=== PATIENT | female | born 1985 | race Caucasian/White ===

== ENCOUNTER 2019-04-28 10:53 | Day surgery (SDC) | payer BC ==
[2019-04-28 11:29] VITALS: BMI 36.6
[2019-04-28] MEDS ORDERED: hydrALAZINE 20 MG/ML VIAL SLOW IVP PRN ×2 (12:25)
[2019-04-28] MEDS ORDERED: Ondansetron PF 4 MG/2 ML Vial IVP PRN (12:25)
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
--- NOTE | 2019-04-28 16:16 | ULT ---
LIMITED OB ULTRASOUND: 04/28/19 HISTORY: Evaluation for abruption. A single viable intrauterine is seen which is in a breech presentation. The heart rat e is 131 beats per minute. Amniotic fluid index is 9.9. The placenta is posterior in location. I do n ot see any signs of abruption. No evidence of previa. IMPRESSION: Placenta which is posterior and more fundal in location. No signs of abruption. POS: [facility]
== END 2019-04-28 14:47 | disposition home health service (06) ==
LOC: L&D/OP 10:53
PROVIDERS: ATTEND Obstetrics & Gynecology
DX: O47.03 False labor before 37 completed weeks of gestation, third trimester (principal); O32.1XX0 Maternal care for breech presentation, not applicable or unspecified; Z3A.35 35 weeks gestation of pregnancy; V89.2XXA Person injured in unspecified motor-vehicle accident, traffic, initial encounter; Y92.411 Interstate highway as the place of occurrence of the external cause
CPT/HCPCS: 36415; 76815; 86850; 86900; 86901; 99283

== ENCOUNTER 2019-05-31 05:30 | Inpatient (IN) | payer BC ==
[2019-05-31] MEDS ORDERED: HYDROcodone/Acetaminophen 5/325 mg Tablet PO PRN (07:01)
[2019-05-31] MEDS ORDERED: Ondansetron PF 4 MG/2 ML Vial IVP PRN ×2 (07:01→09:52)
[2019-05-31] MEDS ORDERED: Lidocaine 1% (PF) 30 ML VIAL SC PRN (07:01)
[2019-05-31] MEDS ORDERED: Promethazine HCl 25 MG/ML VIAL IM PRN ×2 (07:01→09:52)
[2019-05-31] MEDS ORDERED: Ibuprofen 800 MG TAB PO PRN (07:01)
[2019-05-31] MEDS ORDERED: hydrALAZINE 20 MG/ML VIAL SLOW IVP PRN ×2 (07:01→12:54)
[2019-05-31] MEDS ORDERED: Misoprostol 200 MCG TAB PR PRN (07:01)
[2019-05-31] MEDS ORDERED: NS / Oxytocin 40 units/1000ml 1,000 ML IV PRN (07:01)
[2019-05-31] MEDS ORDERED: NS w/ Oxytocin 10 units 500 ML IV SCH (07:01)
[2019-05-31 07:26] VITALS: BMI 36.6
[2019-05-31 08:17] LABS: Hemoglobin 11.2 g/dL (12.0-16.0); Mean Corpuscular HGB CONC 34.7 g/dL (32.0-36.0); Mean Corpuscular Hemoglobin 26.4 pg (27.0-31.0); Mean Corpuscular Volume 76.1 fL (78.0-98.0); Mean Platelet Volume 10.7 fL (7.4-10.4); Platelet Count 160 thou/uL (130-400); RBC Distribution Width 13.5 % (11.5-14.5); Red Blood Cell (RBC) Count 4.23 mill/uL (4.20-5.40); White Blood Cell (WBC) Count 7.4 thou/uL (4.8-10.8)
[2019-05-31 08:50] LABS: HBSAg Index 0.33 S/CO (0-0.99); Hep B Surf Ag Non-Reactive S/CO (NonReactive); Syphilis Antibody Nonreactive (Nonreactive); Syphilis Antibody Index 0.02 S/CO (<1.00 Non-Reactive)
[2019-05-31] MEDS ORDERED: Fentanyl 4 mcg/Bup 0.1% Cadd 100 ML ONE (09:06)
[2019-05-31] MEDS ORDERED: Lactated Ringer's 500 ML IV PRN (09:52)
[2019-05-31] MEDS ORDERED: Naloxone HCl 0.4 mg/ml Vial IVP PRN ×2 (09:52)
[2019-05-31] MEDS ORDERED: diphenhydrAMINE 50 MG/ML VIAL IVP PRN (09:52)
[2019-05-31] MEDS ORDERED: Acetaminophen 325 MG TAB PO PRN (09:52)
[2019-05-31] MEDS ORDERED: ePHEDrine/0.9% NaCl/PF SYRINGE 50 mg/10 ml SLOW IVP PRN (09:52)
[2019-05-31] MEDS ORDERED: Fentanyl 4 mcg/Bupivacaine 0.1% Cassette 100 ML EPIDURAL SCH (10:00)
[2019-05-31] MEDS ORDERED: Communication Order-Pharmacy FS SCH (10:00)
[2019-05-31] MEDS ORDERED: Bupivacaine 0.25% HCL 30 ML VIAL ONE (11:11)
--- NOTE | 2019-05-31 12:51 | PDOC.OPDEL ---
OB Operative/Delivery Note Delivery Dr/Surgeon: More Pre-Delivery Diagnosis: elective induction Procedure/Post Delivery Dx: spontaneous vaginal delivery Weeks gestation: 40 Anesthesia: epidural - Findings A Sex: male - 1 min: 9 - 5 min: 9 - Additional Findings/Plan Placenta delivered: spontaneous Repaired Obstetrical Laceration: none
[2019-05-31] MEDS ORDERED: Adacel (T-DAP) 0.5 ML SYRINGE IM ONE (12:54)
[2019-05-31] MEDS ORDERED: Preparation H Ointment 28 GM TUBE PR PRN (12:54)
[2019-05-31] MEDS ORDERED: Bisacodyl 10 MG SUPP PR PRN (12:54)
[2019-05-31] MEDS ORDERED: Lanolin Ointment 7 GM TUBE TOP PRN (12:54)
[2019-05-31] MEDS ORDERED: Benzocaine-Menthol 82.5 ML CAN TOP PRN (12:54)
[2019-05-31] MEDS ORDERED: diphenhydrAMINE 25 MG CAP PO PRN (12:54)
[2019-05-31] MEDS ORDERED: Milk Of Magnesia 30 ML UDCUP PO PRN (12:54)
[2019-05-31] MEDS: NS / Oxytocin 40 units/1000ml 1,000 ML IV SCH ×2 (13:00→19:50)
[2019-05-31] MEDS: Ibuprofen 800 MG TAB PO SCH ×2 (21:12→22:54)
[2019-05-31] MEDS: Docusate Calcium (SURFAK) 240 MG CAP PO SCH (21:12)
[2019-05-31] MEDS: traMADol HCl 50 MG TAB PO PRN (21:52)
[2019-06-01] MEDS: Ibuprofen 800 MG TAB PO SCH ×2 (06:15→13:37)
--- NOTE | 2019-06-01 07:26 | PDOC.PP ---
Post Progress Note Post Day #: 1 Subjective: Working on Vital Signs (12 hours) Temp Pulse Resp BP BP Pulse Ox 06/01/19 03:55 98.2 F 67 20 119/76 05/31/19 23:55 98.6 F 75 20 118/75 05/31/19 22:02 98.3 F 76 20 134/78 05/31/19 21:11 97.5 F L 80 20 125/75 98 05/31/19 20:10 97.8 F 81 20 133/87 98 Weight Weight 200 lb Result Diagrams: 05/31/19 07:57 Additional Labs: Post Labs Blood Type O POSITIVE 05/31/19 07:57 Hep Bs Antigen Non-Reactive S/CO (NonReactive) 05/31/19 07:57 - Assessment/Plan PPD 1--doing well. Possible discharge today with f/u in 6 weeks....
[2019-06-01] MEDS ORDERED: Prenatal Vitamin 1 TAB PO SCH (09:00)
[2019-06-01] MEDS: Docusate Calcium (SURFAK) 240 MG CAP PO SCH (09:28)
[2019-06-01] MEDS: traMADol HCl 50 MG TAB PO PRN (09:57)
[2019-06-01 12:00] VITALS: BP 133/81; TEMP 97.9
== END 2019-06-01 15:42 | disposition home or self-care (01) | DRG 807 ==
LOC: L&D 06:47 → 3SW 20:10
PROVIDERS: ADMIT Obstetrics & Gynecology; ATTEND Obstetrics & Gynecology
PROC: 10E0XZZ Delivery of Products of Conception, External Approach (ICD-10-PCS; principal; 2019-05-31)
PROC: 10907ZC Drainage of Amniotic Fluid, Therapeutic from Products of Conception, Via Natural or Artificial Opening (ICD-10-PCS; 2019-05-31)
PROC: 3E033VJ Introduction of Other Hormone into Peripheral Vein, Percutaneous Approach (ICD-10-PCS; 2019-05-31)
DX: O69.81X0 Labor and delivery complicated by cord around neck, without compression, not applicable or unspecified (principal); Z37.0 Single live birth; Z3A.40 40 weeks gestation of pregnancy
CPT/HCPCS: 51702; 85027; 86780; 86850; 86900; 86901; 87340; 90715; J2590; S0020